=== PATIENT | female | born 1985 | race Caucasian/White ===

== ENCOUNTER 2021-06-30 11:06 | Outpatient (CLI) | payer SELFPAY ==
[2021-07-01 00:07] LABS: SARS-CoV-2 PCR by NAA Not Detected (NotDetected)
== END 2021-06-30 11:07 | disposition home or self-care (01) ==
LOC: LABBT 11:06
PROVIDERS: ATTEND Surgery
DX: K60.2 Anal fissure, unspecified (principal); Z20.822 Contact with and (suspected) exposure to COVID-19
CPT/HCPCS: U0003; U0005

== ENCOUNTER 2021-07-05 07:11 | Day surgery (SDC) | payer OTHER ==
[2021-06-30 13:41] VITALS: BMI 33.5
[2021-07-05] MEDS ORDERED: fentaNYL Citrate/PF 100 MCG/2 ML SYRINGE ONE (09:20)
[2021-07-05] MEDS ORDERED: Bupivacaine PF 0.5% 30 ML VIAL ONE (09:29)
[2021-07-05] MEDS ORDERED: Methylene Blue 50 MG/10 ML AMPUL ONE ×2 (09:29)
[2021-07-05] MEDS ORDERED: EPINEPHrine 1 MG/ML AMP ONE (09:29)
[2021-07-05] MEDS ORDERED: Sodium Chloride 0.9% 100 ML ONE (09:38)
[2021-07-05] MEDS ORDERED: cefOXitin 2 GM VIAL ONE (09:38)
[2021-07-05] MEDS ORDERED: Dexamethasone 20 MG/5 ML VIAL ONE (09:45)
[2021-07-05] MEDS ORDERED: Lidocaine 1% PF 5 ML VIAL ONE (09:45)
[2021-07-05] MEDS ORDERED: PROPOFOL 20 ML ONE (09:45)
[2021-07-05] MEDS ORDERED: Ketorolac Tromethamine 30 MG/ML VIAL ONE (09:45)
[2021-07-05] MEDS ORDERED: Ondansetron PF 4 MG/2 ML Vial ONE (09:45)
[2021-07-05] MEDS ORDERED: PROPOFOL 200 MG/20 ML VIAL ONE (09:45)
[2021-07-05] MEDS ORDERED: Bacitracin Zinc Ointment 30 gm TUBE ONE (10:11)
== END 2021-07-05 11:55 | disposition home or self-care (01) ==
LOC: SDC 07:11
PROVIDERS: ATTEND Surgery
PROC: 0DBQXZZ Excision of Anus, External Approach (ICD-10-PCS; principal; 2021-07-05)
PROC: 0D8R3ZZ Division of Anal Sphincter, Percutaneous Approach (ICD-10-PCS; principal; 2021-07-05)
DX: K60.2 Anal fissure, unspecified (principal); K62.89 Other specified diseases of anus and rectum; Z79.899 Other long term (current) drug therapy
CPT/HCPCS: 88304; J0171; J0694; J1100; J1885; J2405; J2704; J3490; Q9968; S0020